=== PATIENT | female | born 1935 | race Hispanic/Latino ===

== ENCOUNTER → 2021-03-11 | Outpatient (CLI) | payer OTHER ==
[~2021-03-11] MED LIST: ALEN70TA80 PO; CA C1TAB95 PO; ESOM20CA60 PO; FERR-63 PO; GLIP5TAB11 PO; LISI40TA9 PO; MECO10005 PO; OXYB5TAB15 PO; SITA25TA5 PO; VITAD50000 PO
== END | disposition home or self-care (01) ==
LOC: RAH 10:34
PROVIDERS: ATTEND Internal Medicine
DX: I83.892 Varicose veins of left lower extremity with other complications (principal); I83.92 Asymptomatic varicose veins of left lower extremity; E11.42 Type 2 diabetes mellitus with diabetic polyneuropathy
CPT/HCPCS: 93971